=== PATIENT | male | born 1965 | race Caucasian/White ===

== ENCOUNTER 2024-03-07 12:10 | Day surgery (SDC) | payer OTHER, BC ==
[2024-03-07] VITALS (9 sets, daily range): BP systolic 112–162; BP diastolic 79–98
[~2024-03-07] VITALS: Ht 172.7 cm; Wt 79.5 kg
[~2024-03-07 12:10] MED LIST: OMEPRAZOLE MAGN20 MG; Percocet 5-3251 EACH PO
[2024-03-07] MEDS ORDERED: Tranexamic Acid 100 ML IV SCH (12:30)
[2024-03-07] MEDS ORDERED: Lactated Ringer's 1,000 ML IV SCH (12:30)
[2024-03-07] MEDS ORDERED: CeFAZolin Sodium 2,000 MG in NS 100 ML IV SCH (12:30)
[2024-03-07] MEDS ORDERED: HYDACE10B PO (12:32)
--- NOTE | 2024-03-07 12:52 | NUR ---
Ambulatory in Day Surgery WITH SCOOTER. History, Chart, Medications and Allergies reviewed before start of procedure. Lungs clear T/O to Auscultation. Patient confirms NPO status and agrees with scheduled surgery. Pre-Op teaching done. Pt verbalizes understanding. Patient States Post-Procedure ride home has been arranged. PT BELONGINGS PLACED UNDERNEATH [place] FOR SAFEKEEPING. PT PERSONAL SCOOTER PLACED IN ENDO ROOM 2 FOR SAFEKEEPING. PER LUIS PEREIRA FOR PT TO LEAVE HIS CONTACTS IN.
--- NOTE | 2024-03-07 13:49 | NUR ---
03/07/24 1349 Yojana Martinez POPLITEAL BLOCK COMPLETED BY DR. JETER UPON ENTRY TO OR. PT IN PRONE POSITION FOR BLOCK, TOLERATED WELL.
[2024-03-07] MEDS ORDERED: OxyCODONE HCL 5 MG TAB PO PRN (15:40)
--- NOTE | 2024-03-07 16:35 | NUR ---
Discharge instructions reviewed with patient. Patient verbalizes understanding. Copy given to patient to take home. BELONGINGS RETURNED TO PT. Discharged via wheelchair to private car for ride home.
== END 2024-03-07 16:35 | disposition home or self-care (01) ==
LOC: ORD 12:10 → ORSCMMR 12:10 → ORD 13:30
PROVIDERS: Orthopaedic Surgery Sports Medicine
PROC: 0QSJ04Z Reposition Right Fibula with Internal Fixation Device, Open Approach (ICD-10-PCS; principal; 2024-03-07 13:30)
PROC: 0QSG04Z Reposition Right Tibia with Internal Fixation Device, Open Approach (ICD-10-PCS; principal; 2024-03-07 13:30)
DX: S82.841A Displaced bimalleolar fracture of right lower leg, initial encounter for closed fracture (principal); V23.59XA Other motorcycle passenger injured in collision with car, pick-up truck or van in traffic accident, initial encounter
CPT/HCPCS: A9270; C1713; C1769; C1776; J0690; J7120